=== PATIENT | female | born 1995 | race Caucasian/White ===

== ENCOUNTER 2018-03-06 23:25 | Observation (INO) | payer OTHER ==
[~2018-03-06] VITALS: Ht 160 cm; Wt 63.0 kg
[2018-03-06 23:34] VITALS: BP 118/76
[2018-03-06 23:43] LABS: URINE BILIRUBIN NEGATIVE (Negative); URINE BLOOD TRACE (Negative); URINE CLARITY CLEAR; URINE COLOR YELLOW; URINE GLUCOSE-RANDOM NEGATIVE (Negative); URINE KETONES NEGATIVE (Negative); URINE LEUKOCYTES-REFLEX NEGATIVE (Negative); URINE NITRITE-REFLEX NEGATIVE (Negative); URINE PROTEIN NEGATIVE (Negative); URINE UROBILINOGEN 0.2 E.U./dl (0.2-1.0)
[2018-03-07] VITALS (7 sets, daily range): BP systolic 91–118; BP diastolic 50–76
[2018-03-07 00:04] LABS: HEMATOCRIT 41.7 % (37.0-47.0); HEMOGLOBIN 14.3 gm/dL (12.0-15.0); MCHC 34.2 g/dL (28.0-37.0); MCV 93.7 fL (80.0-100.0); MPV 8.4 fl. (7.2-11.1); NUCLEATED RBCS 0 /100WBC; PLATELET COUNT* 242 thou/uL (150-400); RBC 4.46 mil/uL (4.20-5.00); RDW-CV 12.8 % (10.5-14.5); WBC 22.9 thou/uL (4.0-11.0)
[2018-03-07 00:08] LABS: CALCIUM 9.2 mg/dL (8.5-10.1); CREATININE 0.9 mg/dL (0.6-1.3); POTASSIUM 3.4 mmol/L (3.5-5.1)
[2018-03-07 00:13] LABS: ALBUMIN 3.9 g/dL (3.4-5.0); TOTAL BILIRUBIN 0.4 mg/dL (<0.1-1.0); TOTAL PROTEIN 7.4 g/dL (6.4-8.2)
[2018-03-07 01:12] LABS: ABSOLUTE BASOPHILS 0.2 thou/uL (0.0-0.2); ABSOLUTE EOSINOPHILS 0.5 thou/uL (0.0-0.7); ABSOLUTE LYMPHOCYTES 3.2 thou/uL (0.8-5.3); ABSOLUTE MONOCYTES 1.1 thou/uL (0.0-1.2); ABSOLUTE NEUTROPHILS 17.9 thou/uL (1.6-8.1); ANISOCYTOSIS Occasional; PLATELET ESTIMATE ADEQUATE; TOXIC GRANULATION 2+
--- NOTE | 2018-03-07 08:19 | NUR ---
PT ADMITTED TO ROOM 224 DURING THIS SHIFT; VSS, A+OX4, MILD PAIN, FLUIDS INFUSING. SHE IS ABLE TO COMMUNICATE HER NEEDS TO STAFF EFFECTIVELY. CURRENT PAIN MEDICATION REGIMEN HAS BEEN ADEQUATE FOR CONTROLLING HER PAIN UP TO THIS TIME. SURGERY PT; LIKELY APPENDECTOMY LATER TODAY.
--- NOTE | 2018-03-07 09:01 | NUR ---
ASSUMED CARE OF PT AT 0730. PT RESTING IN BED. BOYFRIEND AND FAMILY AT BEDSIDE. PT A&0X4. DENIES ANY PAIN OR SHORTNESS OF BREATH AT THIS TIME. PT GIVEN PAIN MEDICATIONS BY NOC SHIFT. PT NPO FOR SURGERY TODAY. DR KIRK HERE THIS AM TO SEE PT. PT WILL DISCHARGE HOME THIS AFTERNOON AFTER SURGERY. PT MED SURG STATUS. ON RA SAT UPPER 90'S. DENIES ANY SHORTNESS OF BREATH. IVF. PT UP AD GREG IN ROOM. CONSENTS SIGNED AND PLACED IN CHART. PT AND FAMILY UPDATED ON CURRENT CARE PLAN. AM ASSESSMENT CHARTED. MEDICATIONS PER OCT. PT REPOSITIONS SELF. HOURLY ROUNDING OBSERVED. BED IN LOW POSITION. CALL LIGHT WITHIN REACH. WILL CONTINUE PLAN OF CARE.
--- NOTE | 2018-03-07 10:52 | NUR ---
PACU HERE TO GET PT FOR SURGERY. CONSENT SIGNED AND PLACED IN FRONT OF CHART. PT TO TRANSFER TO ROOM 108 AFTER SURGERY. REPORT CALLED TO MICHELE ALVARADO. PT TRANSFERRED TO PACU VIA BED AND NURSING STAFF. BELONGINGS TAKEN DOWN TO ROOM 108. PT GIVEN MORPHINE FOR PAIN X 1. REFER TO EMAR.
--- NOTE | 2018-03-07 13:07 | H ---
[address] [address] HISTORY AND PHYSICAL Name: RALF ELLISON Room: [address] IN M.R.#: [id number] Admission: 03/07/18 Attend Phys: José Antonio Serrano Discharge: Date of : 89 Report #: [id number] THIS REPORT FOR: //name// CC: MARY physician/PCP José Antonio Serrano DATE OF SERVICE: 03/07/2018 CHIEF COMPLAINT: Abdominal pain. HISTORY OF PRESENT ILLNESS: This is a pleasant 22-year-old woman with abdominal pain. Pain is sharp, stabbing, located in the right lower quadrant. She has had this for 2 days. This is associated with nausea. CT scan demonstrates appendicitis. PAST MEDICAL HISTORY: None. PAST SURGICAL HISTORY: None. SOCIAL HISTORY: No tobacco use. She is employed. ALLERGIES: NKDA. MEDICATIONS: None. REVIEW OF SYSTEMS: Twelve-point review of systems negative except for listed above in the HPI. PHYSICAL EXAMINATION: GENERAL: She is awake, alert, in no acute distress. HEENT: Extraocular movements are intact. Sclerae without icterus. NECK: Supple. HEART: Regular rate and rhythm. CHEST: Fair movement bilaterally. ABDOMEN: Soft, nondistended. It is tender to palpation in the right lower quadrant. EXTREMITIES: Without clubbing, cyanosis or edema. NEUROLOGIC: Grossly intact. SKIN: Without rash or jaundice. RADIOLOGIC FINDINGS: CT scan of the abdomen and pelvis demonstrates appendicitis. ASSESSMENT AND PLAN: A 22-year-old woman with acute appendicitis. We will plan for laparoscopic cholecystectomy. Nature of the procedure, risks and benefits were discussed with the patient and she requests to proceed. [place] [address] HISTORY AND PHYSICAL Name: RALF ELLISON Room: [address] IN [facility].#: [id number] Admission: 03/07/18 Attend Phys: José Antonio Serrano Discharge: Date of : 89 Report #: [id number] discussed included infection, bleeding, damage to surrounding structures. Fully informed, she consented to the procedure. <ELECTRONICALLY SIGNED> By: José Antonio Serrano MD 03/07/18 1307 1232 [id number] Antonio Serrano MD /nt
[2018-03-07] MEDS ORDERED: NORCO 5-325 TA1 EACH PO (16:28)
--- NOTE | 2018-03-07 18:18 | NUR ---
PATIENT LEFT UNIT AT 1800. ALERT AND ORIENTED X4. UP AD GREG IN ROOM. IV DC'D. PAIN BEING MANAGED WITH IV AND PO PAIN MEDICATION. NAUSEA BEING MANAGED WITH IV NAUSEA MEDICATION. TOLERATING REGULAR DIET. ALL PERSONAL ITEMS LEFT WITH PATIENT. DISCHARGE INSTRUCTIONS AND PRESCRIPTIONS SENT WITH PATIENT. VSS ON ROOM AIR. HOURLY ROUNDS HAVE BEEN MAINTAINED SINCE ARRIVING ON UNIT. LEFT WITH FIANCE VIA CAR.
--- NOTE | 2018-03-07 18:29 | NUR ---
PATIENT ARRIVED TO UNIT 1330. ALERT AND ORIENTED X4. IV IS PATENT AND SALINE LOCKED. REQUESTING PAIN AND NAUSEA MEDICATION UPON ARRIVAL TO UNIT. VSS ON ROOM AIR. PATIENT HAS BEEN ORIENTED TO ROOM. CALL LIGHT IS WITHIN REACH. NURSING WILL CONTINUE TO MONITOR.
--- NOTE | 2018-03-14 11:07 | PATH ---
[facility] [address] [place] [address] PATHOLOGY RPT PROCEDURE Name: RALF GARCIA Room: [address] Sd#: [id number] Admission: 03/07/18 Date of : [birth year] Discharge: 03/07/18 Report #: [id number] Path Case #: [id number] [facility] Accession Number: [id number] . 01 Material submitted: . APPENDIX . 01 Clinical history: . Acute appendicitis . 02 Diagnosis: Appendix: - Acute appendicitis, periappendicitis and serositis. . (DARIAN:mmchristiano; 03/11/18) [facility]/03/11/2018 . 02 Electronically signed: . Javy Singh MD, Pathologist NPI- [id number] . 01 Gross description: . Received in formalin labeled "Ralf Garcia, appendix," is an appendix measuring 6.6 cm in length by 0.8 cm in diameter with a moderate amount of attached mesoappendix measuring up to 1.9 cm in thickness. The proximal aspect is closed with a linear staple line that extends into the mesoappendix. The serosal surface is pale tavarez in appearance, displaying an attached segment of call-tavarez membranous tissue that grossly appears to abut the surgical margin and extends for a linear length of 4.0 cm along the serosal surface. The proximal margin serosal surface is inked black. The staple line is removed, and the new underlying margin is inked black. Serial sectioning reveals a pinpoint to patent lumen partially filled with pale tavarez, friable material. The proximal margin and bisected distal tip are submitted in cassette A1, and the remainder of the appendix is serially sectioned and submitted entirely from proximal to distal in cassettes A2 through A6. The mesoappendix is retained within the specimen container. (DAC; 03/10/2018) XDC/XDC . 02 Pathologist provided ICD-10: K35.80 . 02 CPT . 645329 Performed at: [address] [facility] [place] [id number] [place] [address] PATHOLOGY RPT PROCEDURE Name: RALF GARCIA Room: [address] Padmini Beaver#: [id number] Admission: 03/07/18 Date of : [birth year] Discharge: 03/07/18 Report #: [id number] Path Case #: [id number] MD Kevan Smith MD Phone: [phone] Performed at: [address] [facility] [address] [place] [id number] MD Javy Singh MD Phone: [phone]
--- NOTE | 2018-03-21 17:11 | OP ---
[facility] [address] [place] [address] OPERATIVE REPORT Name: RALF ELLISON Room: [address] Padmini Beaver#: [id number] Admission: 03/07/18 Attend Phys: José Antonio Serrano Discharge: 03/07/18 Date of : 89 Report #: [id number] THIS REPORT FOR: //name// CC: MARY physician/PCP José Antonio Serrano DATE OF SERVICE: 03/07/2018 PREOPERATIVE DIAGNOSIS: Acute appendicitis. POSTOPERATIVE DIAGNOSIS: Acute appendicitis. OPERATION: Laparoscopic appendectomy. SURGEON: José Antonio Serrano MD ANESTHESIA: General. ESTIMATED BLOOD LOSS: Minimal. SPECIMENS: Appendix. DESCRIPTION OF PROCEDURE: After informed consent was obtained, the patient was brought to the operating room and placed supine. SCDs were placed and working, preoperative antibiotics were administered, general anesthesia was induced. The abdomen was prepped and draped in the usual sterile fashion. A 10 mm incision was made below the umbilicus. Fascia was incised and a trocar was placed. Pneumoperitoneum established. Right upper quadrant and left lower quadrant 5 mm ports were placed. The appendix was visualized. It was inflamed. It was grasped. A window was made in the mesoappendix. The mesoappendix was stapled with a MIRIAM white load stapler. The base of the appendix was then stapled with a MIRIAM purple load stapler. There was good hemostasis. The ports were then removed under direct vision. The skin was closed with 4-0 Monocryl. Incisions were sealed with Dermabond. COMPLICATIONS: None. DISPOSITION: The patient was taken to recovery in satisfactory condition. <ELECTRONICALLY SIGNED> By: José Antonio Serrano MD 03/21/18 1711 1233 0008José Antonio Serrano MD /nt
== END 2018-03-07 18:00 | disposition home or self-care (01) ==
LOC: M.ERS 23:25 → M.TBA-ER 03-07 03:22 → M.2W 03-07 03:22 → M.ORTHSURG 03-07 03:22 → M.2W 03-07 04:13 → M.ORTHSURG 03-07 10:56
PROVIDERS: Emergency Medicine; ADMIT Surgery
DX: K35.80 Unspecified acute appendicitis (principal); F17.210 Nicotine dependence, cigarettes, uncomplicated; Z72.89 Other problems related to lifestyle; R10.31 Right lower quadrant pain; R11.2 Nausea with vomiting, unspecified